=== PATIENT | male | born 1960 | race Caucasian/White ===

== ENCOUNTER 2016-12-19 06:04 | Day surgery (SDC) | payer OTHER ==
[~2016-12-19] VITALS: Ht 175.3 cm; Wt 120.2 kg
[~2016-12-19 06:04] MED LIST: AMLO1CAP PO; ASPI-557 PO; CALC-946 PO; CYCL-208 PO; EXEN2PEN SQ; EZET10TA PO; GABA-336 PO; HYDR-2164 PO; HYDR-4132 PO; MELO7.5T12 PO; MODA200T48 PO; MULT-1243 PO; NATE60TA8 PO; NEBI10TA PO; PIOG45TA16 PO; ROSU5TAB PO; TRAM50TA4 PO; [UNRECOGNIZED DRUG - CODE] PO
--- OUTSIDE RECORDS SUMMARY | 2016-12-19 06:08 | XMS REPORT | Continuity of Care Document ---
Author Author [facility] Organization [facility] Address Unknown Phone Unavailable Care Team Providers Care Campground Hand Name Role Phone JASBIR GOODEN MD Primary Care Physician [phone] Insurance Providers Payer Name Policy Number Subscriber Name Relationship [employer] [id number] Luis Boucher 19 Self Advance Directives Directive Response Recorded Date/Time Ordered Resuscitation Status Full Code 02/19/14 4:51pm Problems No known problems or medical conditions. Medications Medication Dose Route Sig Days/Qty Instructions Order Date Discontinued Date Status Cyclobenzaprine Hcl 10 Mg PO NEEDED 07/30/08 Active Metformin Hcl 1,000 Mg TWICE A DAY 07/30/08 Active Hydrochlorothiazide 25 Mg PO DAILY 07/30/08 Active Amlodipine Besylate/Benazepril 1 Tab PO DAILY 07/30/08 Active [Tramadol] 07/30/08 02/20/14 Discontinued [Tramadol Hcl] 50 Mg PO Q6-8HRS 02/19/14 Active [Zamicet] 10 Mg PO BEDTIME 02/19/14 Active [Welchol] 1,875 Mg PO TWICE A DAY 02/19/14 Active [Crestor] 5 Mg PO DAILY 02/19/14 Active [Conzip] 100 Mg PO TWICE A DAY 02/19/14 Active [Actos] 30 Mg PO DAILY 02/19/14 Active [Zetia] 10 Mg PO DAILY 02/19/14 Active [Vitamin D] 1 Tab PO DAILY 02/19/14 Active [Potassium Cl] 10 Meq PO DAILY 02/19/14 Active [Mobic] 7.5 Mg PO DAILY 02/19/14 Active Hydrocodone/Acetaminophen 1 Tab PO Q6H PRN 02/19/14 Active [Gabapentin] 100 Mg PO THREE TIMES A DAY 02/19/14 Active Folic Acid/Mv,Fe,Other Min 1 Tab PO DAILY 02/19/14 Active [Bystolic] 10 Mg PO DAILY 02/19/14 Active [Aspirin] 81 Mg PO DAILY 02/19/14 Active Social History Social History Problem Response Recorded Date/Time Smoking Status Current some day smoker 02/20/2014 8:55am Chewing Tobacco Status No 02/20/2014 8:55am Hx Alcohol Use Y several times a month 02/20/2014 8:55am Has the pt used tobacco in the last 12 months Yes 02/20/2014 8:55am Hospital Discharge Instructions No hospital discharge instructions. Plan of Care No plan of care. Functional Status No functional status results. Allergies, Adverse Reactions, Alerts Allergen Type Severity Reaction Status Last Updated No Known Drug Allergies Allergy Unknown Active 12/28/11 Immunizations Name Given Type Hx Influenza Vaccination Y Fall 2012 Historical Hx Pneumococcal Vaccination No Historical Hx Influenza Vaccination Y Fall 2012 Historical Vital Signs Acute Vital Signs Vital Response Date/Time Temperature (Fahrenheit) 98.1 deg F (96.8 - 99.1) Temperature (Calculated Celsius) 36.21476 degrees C (36.0 - 37.3) Temperature Source Temporal Pulse Rate (adult) 66 bpm (60 - 100) Respiratory Rate 16 breaths/min (10 - 20) O2 Sat by Pulse Oximetry 94 % (90 - 100) Blood Pressure 134/70 mm Hg Blood Pressure Source Automatic Cuff Height 5 ft 8.5 in Weight 246 lb Body Mass Index 36.0 kg/m^2 Results Test Source Date Result Interp. Ref. Range Comments Alanine Aminotransferase (ALT/SGPT) December 28, 2011 8:04pm 37 U/L N 21-72 Albumin December 28, 2011 8:04pm 4.4 G/DL N 3.5-5.0 Albumin/Globulin Ratio December 28, 2011 8:04pm 1.4 RATIO N 1.1-2.2 Alkaline Phosphatase December 28, 2011 8:04pm 90 U/L N 38-126 Anion Gap December 28, 2011 8:04pm 12 MEQ/L N 5-15 Aspartate Amino Transf (AST/SGOT) December 28, 2011 8:04pm 26 U/L N 17-59 BUN/Creatinine Ratio December 28, 2011 8:04pm 12 RATIO N 6-26 Basophils # (Auto) December 28, 2011 8:04pm 0.1 T/MM3 N 0-0.2 Basophils (%) (Auto) December 28, 2011 8:04pm 0.7 % N 0-2 Blood Urea Nitrogen December 28, 2011 8:04pm 11.0 MG/DL N 9-20 Calcium Level December 28, 2011 8:04pm 9.2 MG/DL N 8.4-10.2 Calculated Osmolality December 28, 2011 8:04pm 279 MOSM/KG N 261-280 Carbon Dioxide Level December 28, 2011 8:04pm 29 MEQ/L N 22-30 Chloride Level December 28, 2011 8:04pm 103 MEQ/L N 98-107 Conjugated Bilirubin December 28, 2011 8:04pm 0.00 MG/DL N 0.00-0.30 Creatinine December 28, 2011 8:04pm 0.9 MG/DL N 0.8-1.5 Eosinophils # (Auto) December 28, 2011 8:04pm 0.3 T/MM3 N 0-0.5 Eosinophils (%) (Auto) December 28, 2011 8:04pm 2.5 % N 0-4 Globulin December 28, 2011 8:04pm 3.1 G/DL N 2.4-3.6 Glomerular Filtration Rate Calc December 28, 2011 8:04pm 89 - Glucometer February 20, 2014 9:59am 156 mg/dL H 75-110 Glucose Level December 28, 2011 8:04pm 151 MG/DL H 75-110 Hematocrit December 28, 2011 8:04pm 40.3 % L 41-53 Hemoglobin December 28, 2011 8:04pm 14.1 GM/DL N 13.5-17.5 Immature Granulocyte # (Auto) December 28, 2011 8:04pm 0.02 T/MM3 N 0.00- 0.03 Immature Granulocyte % (Auto) December 28, 2011 8:04pm 0.2 % N 0.0-0.5 Lymphocytes # (Auto) December 28, 2011 8:04pm 2.7 T/MM3 N 1-4.8 Lymphocytes (%) (Auto) December 28, 2011 8:04pm 22.9 % L 23-45 Mean Corpuscular Hemoglobin December 28, 2011 8:04pm 28.9 UUG N 26-34 Mean Corpuscular Hemoglobin Concent December 28, 2011 8:04pm 35.0 GM/DL N 31- 37 Mean Corpuscular Volume December 28, 2011 8:04pm 82.6 UM3 N 80-100 Mean Platelet Volume December 28, 2011 8:04pm 9.9 UM3 N 9.4-12.4 Monocytes # (Auto) December 28, 2011 8:04pm 0.8 T/MM3 N 0-0.8 Monocytes (%) (Auto) December 28, 2011 8:04pm 7.0 % N 0-9.0 Neutrophils # (Auto) December 28, 2011 8:04pm 7.8 T/MM3 H 1.8-7.7 Neutrophils (%) (Auto) December 28, 2011 8:04pm 66.7 % H 33-66 Platelet Count December 28, 2011 8:04pm 263 T/MM3 N 130-400 Potassium Level December 28, 2011 8:04pm 3.5 MEQ/L L 3.6-5 RDW Standard Deviation December 28, 2011 8:04pm 38.8 FL N 36.9-50.2 Red Blood Count December 28, 2011 8:04pm 4.88 M/MM3 N 4.50-5.90 Sodium Level December 28, 2011 8:04pm 144 MEQ/L N 134-144 Total Bilirubin December 28, 2011 8:04pm 0.80 MG/DL N 0.20-1.30 Total Protein December 28, 2011 8:04pm 7.5 G/DL N 6.3-8.2 Unconjugated Bilirubin December 28, 2011 8:04pm 0.40 MG/DL N 0.00-1.10 Uric Acid December 28, 2011 8:04pm 6.0 MG/DL N 3.5-8.5 White Blood Count December 28, 2011 8:04pm 11.6 T/MM3 H 4.5-11.0 Procedures Procedure Status Date Provider(s) Colonoscopy with polypectomy and biopsy completed 02/20/[address] MD
--- OUTSIDE RECORDS SUMMARY | 2016-12-19 06:08 | XMS REPORT | Referral Summary ---
Author Author [facility] Organization [facility] Address Unknown Phone Unavailable Care Team Providers Care Cable Inspector Name Role Phone Cathryn Coyne Primary Care Physician [phone] [facility] [id number] Date(s): 06/09/16 - 06/09/16 [facility] [address] [place] [address] [facility] Discharge Diagnosis: Screening for thyroid disorder Discharge Diagnosis: Hyperlipemia Discharge Diagnosis: Diabetic peripheral neuropathy Discharge Diagnosis: Type 2 diabetes mellitus, uncontrolled Discharge Diagnosis: Hypertension Discharge Disposition: 01-Home or Self Care Attending Physician: Vesta Yeung APRN Admitting Physician: Vesta Yeung APRN Referring Physician: Sammie Coyne DO Vital Signs Most recent to 1 oldest [Reference Range]: Peripheral Pulse 76 bpm Rate [60-100 bpm] (06/09/16 11:00 AM) Blood Pressure 124/84 mmHg [90-140/60-90 mmHg] (06/09/16 11:00 AM) Problem List Condition Effective Dates Status Health Status Informant Diabetic peripheral Active neuropathy(Confirmed ) Hypertension(Confirm Active ed) Hyperlipemia(Confirm Active ed) Obesity(Confirmed) Active patient Screening for Active thyroid disorder(Confirmed) Type 2 diabetes Active mellitus, uncontrolled(Confirm ed) Allergies, Adverse Reactions, Alerts No Known Medication Allergies Medications Actos 45 mg oral tablet 45 mg 1 tabs, Oral, Daily, # 30 tabs, 0 Refill(s) Start Date: 06/09/16 Status: Ordered aspirin 0 Refill(s) Start Date: 06/09/16 Status: Ordered Bystolic 10 mg oral tablet 10 mg 1 tabs, Oral, Daily, # 30 tabs, 0 Refill(s) Start Date: 06/09/16 Status: Ordered Crestor 5 mg oral tablet 5 mg 1 tabs, Oral, Daily, # 30 tabs, 0 Refill(s) Start Date: 06/09/16 Status: Ordered cyclobenzaprine Oral, 0 Refill(s) Start Date: 06/09/16 Status: Ordered gabapentin Oral, 0 Refill(s) Start Date: 06/09/16 Status: Ordered Glucometer Lancets (DME) DME Item freestyle lancets checks qid x3 days per week 1 yxq=715, See Instructions, # 1 Each, 6 Refill(s), [facility]: [facility], freestyle lancets; checks qid x3 days per week; 1 rxr=336, Supply Start Date: 06/09/16 Status: Ordered Glucometer strips (DME) DME Item freestyle lite test strips checks qid x3 days per week 1 hvv=456, See Instructions, # 1 Each, 6 Refill(s), [facility]: [facility], freestyle lite test strips; checks qid x3 days per week; 1 ces=743, Supply Start Date: 06/09/16 Status: Ordered hydrochlorothiazide Oral, Daily, 0 Refill(s) Start Date: 06/09/16 Status: Ordered HYDROcodone-acetaminophen 10 mg-325 mg oral tablet tabs, Oral, q6hr, 0 Refill(s) Start Date: 06/09/16 Status: Ordered Januvia Oral, Daily, 0 Refill(s) Start Date: 06/09/16 Status: Ordered Lotrel 10 mg-20 mg oral capsule 1 caps, Oral, Daily, # 30 caps, 0 Refill(s) Start Date: 06/09/16 Status: Ordered modafinil Oral, qAM, 0 Refill(s) Start Date: 06/09/16 Status: Ordered multivitamin Daily, 0 Refill(s) Start Date: 06/09/16 Status: Ordered potassium citrate Oral, 0 Refill(s) Start Date: 06/09/16 Status: Ordered Vitamin D with Minerals oral tablet 1 tabs, Oral, Daily, # 30 tabs, 0 Refill(s) Start Date: 06/09/16 Status: Ordered Zetia 10 mg oral tablet 10 mg 1 tabs, Oral, Daily, # 30 tabs, 0 Refill(s) Start Date: 06/09/16 Status: Ordered Results Chemistry Most recent to 1 oldest [Reference Range]: Sodium Lvl [135-144 139 mEq/L mEq/L] (06/09/16:54 AM) Potassium Lvl 3.6 mEq/L [3.5-5.2 mEq/L] (06/09/16 11:54 AM) Chloride [99-111 103 mEq/L mEq/L] (06/09/16:54 AM) CO2 [23-31 mEq/L] 28 mEq/L (06/09/16:54 AM) AGAP [3-20] 8 (06/09/16:54 AM) BUN [8-26 mg/dL] 12 mg/dL (06/09/16:54 AM) Glucose Lvl [70-99 187 mg/dL mg/dL] *HI* (06/09/16:54 AM) Creatinine Lvl 0.79 mg/dL [0.72-1.25 mg/dL] (06/09/16:54 AM) eGFR [>60 mL/min] >60 mL/min 1 (06/09/16:54 AM) Calcium Lvl 8.9 mg/dL [8.9-10.5 mg/dL] (06/09/16:54 AM) ALT [0-55 U/L] 43 U/L (06/09/16:54 AM) AST [5-34 U/L] 25 U/L (06/09/16:54 AM) T4 Free [0.7-1.5 1.2 ng/dL ng/dL] (06/09/16:54 AM) TSH [0.35-4.94] 0.71 (06/09/16 11:54 AM) Hgb A1c [4.1-5.6 %] 9.8 % *HI* (06/09/16:54 AM) eAvg Glucose 234.6 mg/dL (06/09/16:54 AM) 1Result Comment: Multiply eGFR results by 1.21 for race. Urinalysis Most recent to 1 oldest [Reference Range]: UA Color Yellow (06/09/16 11:54 AM) UA Appear Clear (06/09/16 11:54 AM) UA pH [5.0-8.0] 6.5 (06/09/16 11:54 AM) UA Leuk Est Negative [Negative] (06/09/16 11:54 AM) UA Nitrite Negative [Negative] (06/09/16 11:54 AM) UA Protein Negative [Negative] (06/09/16 11:54 AM) UA Glucose Pos 3+ [Negative] *ABN* (06/09/16 11:54 AM) UA Ketones Negative [Negative] (06/09/16 11:54 AM) UA Urobilinogen 1.0 mg/dL [<1.0 mg/dL] (06/09/16 11:54 AM) UA Bili [Negative] Negative (06/09/16 11:54 AM) UA Blood [Negative] Negative (06/09/16 11:54 AM) UA Spec Grav 1.031 [1.003-1.030] *HI* (06/09/16 11:54 AM) Type Voided (06/09/16 11:54 AM) Immunizations No data available for this section Procedures Procedure Date Related Diagnosis Body Site Collection of venous blood by venipuncture 06/09/16 Social History Social History Type Response Smoking Status Never smoker Assessment and Plan Extracted from: Title: Office Visit Note Author: Vesta Yeung APRN Date: 06/09/16 Assessment/Plan 1.Type 2 diabetes mellitus, uncontrolled 1. check blood sugars fasting and 2 hours after meals 3-7 days per week. New [employer] test monitor provided 2. continue current doses of medications 3. discussed other treatment options available 4. monitor diet and exercise 5. avoid caffeine 6. monitor feet daily I discussed the patient with the preceptor. Ordered: Albumin/Creatinine Ratio, Urine Hemoglobin A1c Office Visit [place] 4 New [id number] Return to Clinic Urinalysis with Culture if Indicated 2.Hypertension Ordered: Albumin/Creatinine Ratio, Urine Hemoglobin A1c Office Visit Level 4 New [id number] Return to Clinic Urinalysis with Culture if Indicated 3.Hyperlipemia Ordered: Albumin/Creatinine Ratio, Urine Hemoglobin A1c Office Visit Level 4 New [id number] Return to Clinic Urinalysis with Culture if Indicated 4.Screening for thyroid disorder Ordered: Albumin/Creatinine Ratio, Urine Hemoglobin A1c Office Visit Level 4 New [id number] Return to Clinic Urinalysis with Culture if Indicated 5.Diabetic peripheral neuropathy Extracted from: Title: Ambulatory Patient Education Author: Vesta Yeung SPECIAL EFFECTS PERSON Date: 06/09/16 Preventive Medicine Blood Glucose Monitoring, Adult Monitoring your blood glucose (also know as blood sugar) helps you to manage your diabetes. It also helps you and your health care provider monitor your diabetes and determine how well your treatment plan is working. WHY SHOULD YOU MONITOR YOUR BLOOD GLUCOSE? It can help you understand how food, exercise, and medicine affect your blood glucose. It allows you to know what your blood glucose is at any given moment. You can quickly tell if you are having low blood glucose (hypoglycemia) or high blood glucose (hyperglycemia). It can help you and your health care provider know how to adjust your medicines. It can help you understand how to manage an illness or adjust medicine for exercise. WHEN SHOULD YOU TEST? Your health care provider will help you decide how often you should check your blood glucose. This may depend on the type of diabetes you have, your diabetes control, or the types of medicines you are taking. Be sure to write down all of your blood glucose readings so that this information can be reviewed with your health care provider. See below for examples of testing times that your health care provider may suggest. Type 1 Diabetes Test at least 2 times per day if your diabetes is well controlled, if you are using an insulin pump, or if you perform multiple daily injections. If your diabetes is not well controlled or if you are sick, you may need to test more often. It is a good idea to also test: Before every insulin injection. Before and after exercise. Between meals and 2 hours after a meal. Occasionally between 2:00 a.m. and 3:00 a.m. Type 2 Diabetes If you are taking insulin, test at least 2 times per day. However, it is best to test before every insulin injection. If you take medicines by mouth (orally), test 2 times a day. If you are on a controlled diet, test once a day. If your diabetes is not well controlled or if you are sick, you may need to monitor more often. HOW TO MONITOR YOUR BLOOD GLUCOSE Supplies Needed Blood glucose meter. Test strips for your meter. Each meter has its own strips. You must use the strips that go with your own meter. A pricking needle (lancet). A device that holds the lancet (lancing device). A journal or log book to write down your results. Procedure Wash your hands with soap and water. Alcohol is not preferred. Prick the side of your finger (not the tip) with the lancet. Gently milk the finger until a small drop of blood appears. Follow the instructions that come with your meter for inserting the test strip, applying blood to the strip, and using your blood glucose meter. Other Areas to Get Blood for Testing Some meters allow you to use other areas of your body (other than your finger) to test your blood. These areas are called alternative sites. The most common alternative sites are: The forearm. The thigh. The back area of the lower leg. The palm of the hand. The blood flow in these areas is slower. Therefore, the blood glucose values you get may be delayed, and the numbers are different from what you would get from your fingers. Do not use alternative sites if you think you are having hypoglycemia. Your reading will not be accurate. Always use a finger if you are having hypoglycemia. Also, if you cannot feel your lows (hypoglycemia unawareness), always use your fingers for your blood glucose checks. ADDITIONAL TIPS FOR GLUCOSE MONITORING Do not reuse lancets. Always carry your supplies with you. All blood glucose meters have a 24-hour "hotline" number to call if you have questions or need help. Adjust (calibrate) your blood glucose meter with a control solution after finishing a few boxes of strips. BLOOD GLUCOSE RECORD KEEPING It is a good idea to keep a daily record or log of your blood glucose readings. Most glucose meters, if not all, keep your glucose records stored in the meter. Some meters come with the ability to download your records to your home computer. Keeping a record of your blood glucose readings is especially helpful if you are wanting to look for patterns. Make notes to go along with the blood glucose readings because you might forget what happened at that exact time. Keeping good records helps you and your health care provider to work together to achieve good diabetes management. This information is not intended to replace advice given to you by your health care provider. Make sure you discuss any questions you have with your health care provider. Document Released: 07/19/2004 Document Revised: 08/07/2015 Document Reviewed: [employer] Interactive Patient Education 2016 [employer] No follow up information was provided. Referrals to Other Providers Referred by: Vesta Yeung APRN
--- OUTSIDE RECORDS SUMMARY | 2016-12-19 06:08 | XMS REPORT | Continuity of Care Document ---
Author Author [facility] Address Unknown Phone Unavailable Allergies Active Description Code Type Severity Reaction Onset Reported/Identified Relationship to Patient Clinical Status Yes No Known Drug Allergies No Known Drug Allergies Drug Allergy Unknown . 01/26/2015 Yes No Known Drug Allergies No Known Drug Allergies Drug Allergy Unknown . 01/26/2015 Medications Problems Procedures Code Description Performed By Performed On IMPLANT OR REPLACEMENT OF SPINAL NEUROSTIMULATOR Mike Gardner MD 01/19/2015 86.95 INSEJ/REPM MULT ARRAY NEUROSTIMUL PULSE GEN NOT SP Mike Zepeda MD 01/26/2015 Results Test Result Range GLUCOSE (POC) - 01/19/15 09:53 GLUCOSE (POC) 230 mg/dL 70-99 POTASSIUM - 01/19/15 10:05 POTASSIUM 3.7 mmol/L 3.5-5.3 GLUCOSE (POC) - 01/26/15 09:45 GLUCOSE (POC) 207 mg/dL 70-99 POTASSIUM - 01/26/15 09:47 POTASSIUM 4.0 mmol/L 3.5-5.3 GLUCOSE (POC) - 01/26/15 13:05 GLUCOSE (POC) 188 mg/dL 70-99 Encounters ACCT No. Visit Date/Time Discharge Status Pt. Type Provider Facility Loc./Unit Complaint [id number] 01/26/2015 08:51:00 2014 15:07:00 DIS Outpatient Duane HEARD, [facility] W.OPRA [id number] 01/19/2015 07:35:00 2014 14:15:00 DIS Outpatient Duane HEARD, [facility] W.OPRA [id number] 11/27/2013 20:00:00 2013 00:01:00 DIS Outpatient Jeremy HEARD, [facility] W.JEFFREY
--- OUTSIDE RECORDS SUMMARY | 2016-12-19 06:08 | XMS REPORT | Referral Summary ---
Author Author [facility] Organization [facility] Address Unknown Phone Unavailable Care Team Providers Care Senior Mechanical Development Engineer Name Role Phone Cathryn Coyne Primary Care Physician [phone] Encounter [facility] [phone] Date(s): 07/22/16 - 07/22/16 [facility] [address] [place] [address] [facility] Discharge Diagnosis: Diabetic peripheral neuropathy Discharge Diagnosis: Hypertension Discharge Diagnosis: Hyperlipemia Discharge Diagnosis: Type 2 diabetes mellitus, uncontrolled Discharge Disposition: 01-Home or Self Care Attending Physician: Vesta Yeung APRN Admitting Physician: Vesta Yeung APRN Vital Signs Most recent to 1 oldest [Reference Range]: Peripheral Pulse 84 bpm Rate [60-100 bpm] (07/22/16 9:24 AM) Blood Pressure 120/80 mmHg [90-140/60-90 mmHg] (07/22/16 9:24 AM) Problem List Condition Effective Dates Status [...] 0 Refill(s) Start Date: 06/09/16 Status: Ordered Bydureon Kit 2 mg subcutaneous injection, extended release 2 mg, SubCutaneous, qWeek, # 16 boxes, 6 Refill(s), [facility]acy: [facility], 2 mg SubCutaneous qWeek Start Date: 07/22/16 Status: Ordered Bystolic 10 mg oral tablet [...] checks qid x3 days per week 1 agl=999, See Instructions, # 1 Each, 6 Refill(s), [facility]acy: [facility] freestyle lancets; checks qid x3 days per week; 1 lub=625, Supply Start Date: 06/09/16 Status: Ordered Glucometer strips (DME) DME Item freestyle lite test strips checks qid x3 days per week 1 gwh=622, See Instructions, # 1 Each, 6 Refill(s), Pharmacy: [facility] freestyle lite test strips; checks qid x3 days per week; 1 dam=724, Supply Start Date: 06/09/16 Status: Ordered hydrochlorothiazide [...] 0 Refill(s) Start Date: 06/09/16 Status: Ordered Starlix 60 mg oral tablet 60 mg 1 tabs, Oral, TIDAC, # 270 tabs, 6 Refill(s), [facility]: [facility], 1 tabs Oral TIDAC Start Date: 07/22/16 Status: Ordered Vitamin D with Minerals oral tablet 1 tabs, Oral, Daily, # 30 tabs, 0 Refill(s) Start Date: 06/09/16 Status: Ordered Zetia 10 mg oral tablet 10 mg 1 tabs, Oral, Daily, # 30 tabs, 0 Refill(s) Start Date: 06/09/16 Status: Ordered Results No data available for this section Immunizations No data available for this section Procedures No data available for this section Social History Social History Type Response Smoking Status Never smoker Assessment and Plan Extracted from: Title: Office Visit Note Author: Vesta Yeung NUCLEAR MEDICAL TECHNOLOGIST Date: 07/22/16 Assessment/Plan 1.Type 2 diabetes mellitus, uncontrolled 1.check blood sugars fasting and 2 hours after meals 3-7 days per week 2.discussed options for better glucose control. Pt opted to try bydureon 2mg weekly 3.start starlix 60mg one tab 10-15 minutes prior to meals 4.stop januvia 5.continue actos 6.monitor diet closely 7.monitor feet daily I discussed the patient with the preceptor. Ordered: Office Visit Level 4 Est 87049 Return to Clinic 2.Diabetic peripheral neuropathy Ordered: Office Visit Level 4 Est 25850 Return to Clinic 3.Hyperlipemia Ordered: Office Visit Level 4 Est 17639 Return to Clinic 4.Hypertension Ordered: Office Visit Level 4 Est 31053 Return to Clinic Extracted from: Title: Ambulatory Patient Education Author: Vesta Yeung NUCLEAR MEDICAL TECHNOLOGIST Date: 07/22/16 Family Medicine Diabetes Mellitus and Food It is important for you to manage your blood sugar (glucose) level. Your blood glucose level can be greatly affected by what you eat. Eating healthier foods in the appropriate amounts throughout the day at about the same time each day will help you control your blood glucose level. It can also help slow or prevent worsening of your diabetes mellitus. Healthy eating may even help you improve the level of your blood pressure and reach or maintain a healthy weight. General recommendations for healthful eating and cooking habits include: Eating meals and snacks regularly. Avoid going long periods of time without eating to lose weight. Eating a diet that consists mainly of plant-based foods, such as fruits, vegetables, nuts, legumes, and whole grains. Using low-heat cooking methods, such as baking, instead of high-heat cooking methods, such as deep frying. Work with your dietitian to make sure you understand how to use the Nutrition Facts information on food labels. HOW CAN FOOD AFFECT ME? Carbohydrates Carbohydrates affect your blood glucose level more than any other type of food. Your dietitian will help you determine how many carbohydrates to eat at each meal and teach you how to count carbohydrates. Counting carbohydrates is important to keep your blood glucose at a healthy level, especially if you are using insulin or taking certain medicines for diabetes mellitus. Alcohol Alcohol can cause sudden decreases in blood glucose (hypoglycemia), especially if you use insulin or take certain medicines for diabetes mellitus. Hypoglycemia can be a life-threatening condition. Symptoms of hypoglycemia ( sleepiness, dizziness, and disorientation) are similar to symptoms of having too much alcohol. If your health care provider has given you approval to drink alcohol, do so in moderation and use the following guidelines: Women should not have more than one drink per day, and men should not have more than two drinks per day. One drink is equal to: 12 oz of beer. 5 oz of wine. 1 oz of hard liquor. Do not drink on an empty stomach. Keep yourself hydrated. Have water, diet soda, or unsweetened iced tea. Regular soda, juice, and other mixers might contain a lot of carbohydrates and should be counted. WHAT FOODS ARE NOT RECOMMENDED? As you make food choices, it is important to remember that all foods are not the same. Some foods have fewer nutrients per serving than other foods, even though they might have the same number of calories or carbohydrates. It is difficult to get your body what it needs when you eat foods with fewer nutrients. Examples of foods that you should avoid that are high in calories and carbohydrates but low in nutrients include: Trans fats (most processed foods list trans fats on the Nutrition Facts label). Regular soda. Juice. Candy. Sweets, such as cake, pie, doughnuts, and cookies. Fried foods. WHAT FOODS CAN I EAT? Eat nutrient-rich foods, which will nourish your body and keep you healthy. The food you should eat also will depend on several factors, including: The calories you need. The medicines you take. Your weight. Your blood glucose level. Your blood pressure level. Your cholesterol level. You should eat a variety of foods, including: Protein. Lean cuts of meat. Proteins low in saturated fats, such as fish, egg whites, and beans. Avoid processed meats. Fruits and vegetables. Fruits and vegetables that may help control blood glucose levels, such as apples, mangoes, and yams. Dairy products. Choose fat-free or low-fat dairy products, such as milk, yogurt, and cheese. Grains, bread, pasta, and rice. Choose whole grain products, such as multigrain bread, whole oats, and brown rice. These foods may help control blood pressure. Fats. Foods containing healthful fats, such as nuts, avocado, olive oil, canola oil, and fish. DOES EVERYONE WITH DIABETES MELLITUS HAVE THE SAME MEAL PLAN? Because every person with diabetes mellitus is different, there is not one meal plan that works for everyone. It is very important that you meet with a dietitian who will help you create a meal plan that is just right for you. This information is not intended to replace advice given to you by your health care provider. Make sure you discuss any questions you have with your health care provider. Document Released: 04/13/2006 Document Revised: 08/07/2015 Document Reviewed: [employer] Patient Education 2016 [employer] No follow up information was provided. Referrals to Other Providers Referred by: Vesta Yeung APRN
[2016-12-19 06:20] VITALS: Ht 175.3 cm; Wt 120.2 kg
[2016-12-19 06:21] VITALS: BP 161/91; PULSE 77; RESP 16; TEMP 98.3; O2SAT 98
[2016-12-19] MEDS ORDERED: ESOM40CA PO (06:29)
[2016-12-19] MEDS ORDERED: LIDOCAINE 1% (10mg/ml) 2ml SDV INJ ONE (07:00)
[2016-12-19] MEDS ORDERED: LR 1,000 ML IV SCH (07:00)
--- NOTE | 2016-12-19 07:11 | ANESPREOP ---
Anesthesia Record Date and Time DATE: 12/19/16 TIME: 07:09 Pre-Op Diagnosis gerd n&v Proposed Surgical Procedure EGD Allergies: Coded Allergies: No Known Drug Allergies (Verified Allergy, Unknown, 12/28/11) Ht/Wt/BMI Height: 5 ' 9.00 " Weight: 120.200 kg BMI: 39.1 kg/m2 Vital Signs Date Time Temp Pulse Resp B/P Pulse Ox O2 Delivery O2 Flow Rate FiO2 12/19/16 06:21 98.3 77 16 161/91 98 Room Air Medications Inpatient Medications Current Medications Medications (Trade) Dose Ordered Sig/Vinny Start Time Stop Time Status Last Admin Dose Admin Lactated Ringer's (Lactated Ringers) 1,000 ml @ 50 mls/hr Q20H 12/19/16 07:00 12/19/16 06:37 50 MLS/HR Amlodipine Besylate/Benazepril (Lotrel 10/20 Mg Capsule) 1 Cap Capsule, 1 TAB PO DAILY, (Reported) Last Taken: on 12/18/16 0800 Aspirin (Aspir 81) 81 Mg Tablet.dr, 81 MG PO DAILY, (Reported) Last Taken: on 12/18/16 08 Cholecalciferol (Vitamin D3) (Vitamin D3) 5, 000 Unit Tablet, 5,000 UNIT PO DAILY, (Reported) Last Taken: on 12/18/16 08 Cyclobenzaprine Hcl (Cyclobenzaprine Hcl) 10 Mg Tablet, 10 MG PO PRN, (Reported) Last Taken: on 12/18/161999 Esomeprazole Magnesium (Nexium) 40 Mg Capsule.dr, 1 CAP PO BID, (Reported) Last Taken: on 12/19/16 0545 Exenatide Microspheres (Bydureon Pen) 2 Mg/ 0.65 Ml Pen.injctr, 1 UNIT SQ WEEKLY, (Reported) Last Taken: on 12/12/16 Ezetimibe (Zetia) 10 Mg Tablet, 10 MG PO DAILY, ( Reported) Last Taken: on 12/18/16 08 Gabapentin (Gabapentin) 100 Mg Capsule, 300 MG PO BID, (Reported) Last Taken: on 12/18/161999 Hydrochlorothiazide (Hydrochlorothiazide) 25 Mg Tablet, 25 MG PO DAILY, (Reported) Last Taken: on 12/18/16 0800 Hydrocodone/Acetaminophen (Lorcet Hd 10-325 mg Tablet) 1 Each Tablet, 1 TAB PO Q6H PRN, (Reported) Last Taken: on 12/16/16 Hydrocodone/Acetaminophen (Zamicet 10-325 mg/15 ml Soln) 473 Ml Solution, 10 MG PO HS, (Reported) Last Taken: on 12/15/16 Meloxicam (Mobic) 7.5 Mg Tablet, 7.5 MG PO DAILY, ( Reported) Last Taken: on 12/18/16 2000 Modafinil (Modafinil) 200 Mg Tablet, 1 TAB PO DAILY, (Reported) Last Taken: on 12/18/16 0800 Multivits-Min/FA/Lycopene/Lut (Centrum Silver Tablet) 1 Each Tablet, 1 TAB PO DAILY, (Reported) Last Taken: on 12/18/16 0800 Nateglinide (Nateglinide) 60 Mg Tablet, 1 TAB PO TID, (Reported) Last Taken: on 12/18/16 0800 Nebivolol HCl (Bystolic) 10 Mg Tablet, 10 MG PO DAILY, (Reported) Last Taken: on 12/19/16 0545 Pioglitazone HCl (Pioglitazone HCl) 45 Mg Tablet, 1 TAB PO DAILY, (Reported) Last Taken: on 12/18/16 0800 Rosuvastatin Calcium (Crestor) 5 Mg Tablet, 5 MG PO DAILY, (Reported) Last Taken: on 12/18/16 2100 Tramadol HCl (Tramadol HCl) 50 Mg Tablet, 50 MG PO PRN, (Reported) Last Taken: on Unknown Date & Time Discontinued Medications Pioglitazone HCl (Actos) 30 Mg Tablet, 30 MG PO DAILY, (Reported) Currently on Beta Sasha: No Medical/Surgical History Anesthesia PMH: Reports: *Diabetes, *Hypertension, Arthritis (BACK), Obesity, Reflux, Sleep Apnea, Denies: *Angina, *Dyspnea, *MA, Anesthesia Reactions (NO AIRWAY ISSUES), Asthma, CHF, COPD, CVA/Stroke/TIA, Cancer, Clotting Problems, Deep Vein Thrombosis, Glaucoma, Hepatitis, Hiatal Hernia, Malignant Hyperthermia , Pneumonia, Renal Disease, Seizures, Thyroid Disease, Tuberculosis Smoking Status: Former smoker Has pt. smoked today?: No Use Chewing Tobacco?: No Second Hand Exposure: No Substance Use Type: does not use Substance last used: unknown Alcohol Intake: a few times a month Last Drink: unknown Past Surgical History Orthopedic Surgeries: Yes - RECONST RT RING FINGER; LT KNEE SCOPE Abdominal Surgeries: Yes - SHANT Genitourinary Surgeries: No Cardiac Surgeries: No Endocrine Surgeries: No Reproductive Surgeries: No Neurological Surgeries: Yes - MULTILEVEL DECOMPRESSION LAMINECTOMY Ear Surgeries: No Nose Surgeries: No Throat Surgeries: No Other Surgeries: Yes - EXC CYST ON TAILBONE,SPINAL STIMULATOR IMPLANTED Anesthesia Adverse Reactions: FOUND none Family Hx of Anesthesia Advers: none Hx of Motion Sickness: No Pertinent Findings EKG Rhythm: Sinus Rhythm Physical Exam Respiratory: Bilat breath sounds equal, Lungs clear Cardiovascular: FOUND Regular rate, rhythm, FOUND No murmur Airway Assessment Mallampati Score: II TMD: 2 Fingerbreadths Neck Extension: Poor Overall Assessment: No Airway Concerns, May Be Diff Mask Vent., May Be Diff Intubation ASA: 3 Plan Anesthesia Plan: TIVA Discussion Discussed risks/options/alternatives of anesthesia and questions answered. Patient consents. Nursing pain assessment noted. Present: Spouse Attestation Statement Prior to the delivery of any anesthetic medication, I examined the patient, developed the plan, obtained the patient's consent and discussed the risk and benefits of the procedure with the patient/guardian. JORGE CHAKRABORTY CRNA December 19, 2016 07:11
[2016-12-19] MEDS ORDERED: LIDOCAINE 1% (10mg/ml) 2ml SDV ONE (07:20)
[2016-12-19] MEDS ORDERED: PROPOFOL 500mg 50 ML IV ONE (07:20)
[2016-12-19] MEDS ORDERED: LIDOCAINE VISCOUS 2% Oral Soln 15ml UD ONE (07:23)
[2016-12-19 07:45] VITALS: BP 139/71; PULSE 73; RESP 14; TEMP 97.7; O2SAT 95
--- NOTE | 2016-12-19 07:57 | GSPOSTPROC ---
Immediate Operative Note DATE: 12/19/16 TIME: 07:56 Postop Diagnosis: * Retained food in stomach - possible diabetic gastroparesis * long-term use of meloxicam * Type 2 DM * N/V * GERD Surgical Procedure: EGD Surgeon: Georgina ASA: 3 TIRSO LIZARRAGA MD December 19, 2016 07:57
[2016-12-19 08:00] VITALS: BP 130/67; PULSE 67; RESP 16; O2SAT 95
--- NOTE | 2016-12-19 08:05 | NUR ---
CARE OF PT RECEIVED REPORT FROM Leyla WALKER RN TO ASSUME CARE OF PT. PT TOLERATING PO W/O DIFFICULTY. PT DENIES PAIN OR NAUSEA. WILL PROCEED WITH DISMISSAL.
[2016-12-19 08:15] VITALS: BP 145/80; PULSE 70; RESP 16; O2SAT 96
[2016-12-19 08:30] VITALS: BP 152/83; PULSE 74; RESP 16; TEMP 97; O2SAT 96
--- NOTE | 2016-12-19 08:47 | ANESPO ---
Post-Op Note Date 12/19/16 Time: 08:46 Status Pt Participated in Evaluation: Pt participated in person Vital Signs Date Time Temp Pulse Resp B/P Pulse Ox O2 Delivery O2 Flow Rate FiO2 12/19/16 08:30 97.0 74 16 152/83 96 Room Air Respiratory Function: Airway patent Cardiovascular Function: Regular pulse Telemetry Pattern: SR Mental Status: Alert/oriented Pain Level Intensity: 0 Hydration: Taking po fluids Complications during Recovery None apparent Follow-Up Instructions Instructions Per Surgeon GRACIE ENGLE CRNA December 19, 2016 08:47
--- NOTE | 2016-12-20 09:15 | OPNOTEF ---
DATE OF OPERATION 12/19/2016 SURGEON Uriel Erickson MD PREOPERATIVE DIAGNOSES 1. Nausea and vomiting. 2. Gastroesophageal reflux disease. 3. Type 2 diabetes mellitus. 3. Long-term use of meloxicam. POSTOPERATIVE DIAGNOSES 1. Retained food within the stomach - possible gastroparesis. 2. Type 2 diabetes mellitus. 3. Nausea and vomiting. 4. Gastroesophageal reflux disease. PROCEDURE Esophagogastroduodenoscopy. ANESTHESIA TIVA ASA CLASS 3 INDICATIONS The patient is a 56-year-old male who has had several months of increased belching, gas, flatus, indigestion, heartburn, and an acid taste in the back of his throat. He had had significant nausea and vomiting on several occasions. Because of his symptoms it was recommended that he have an EGD to investigate. He has used meloxicam on a long-term basis. FINDINGS The stomach, esophagus, and duodenum were normal except for a large amount of retained food within the stomach along the greater curvature. No inflammation was noted. DESCRIPTION OF PROCEDURE After informed consent was obtained, the patient was taken to the endoscopy suite and placed in left lateral decubitus position. IV anesthesia was administered by the anesthesia team. A bite block was inserted followed by an Olympus video gastroscope. The gastroscope was advanced down into the esophagus under direct vision. It was advanced to the second portion of the duodenum under direct vision. The scope was then slowly withdrawn examining the mucosa circumferentially. The stomach was normal other than the retained food within the stomach. A large amount of fluid was suctioned from the stomach but, with the food particles, the entire mucosa could not be visualized. All of the areas that were irrigated free of debris showed no evidence of irritation. The antrum was free of irritation. The scope was retroflexed to examine the cardiac and fundic portions of the stomach. The carbon dioxide insufflation was evacuated from the stomach and the scope was withdrawn into the esophagus. The Z-line was sharp. The esophagus was normal during scope withdrawal. The patient tolerated the procedure well. He was awakened and transferred to recovery area in stable condition. RECOMMENDATIONS 1. Check a gastric emptying study to see if the patient is suffering from gastroparesis. 2. Continue b.i.d. Nexium if he continues to have reflux symptoms. 3. He could stop his Carafate since there is no irritation. [facility]
== END 2016-12-19 08:47 | disposition home or self-care (01) ==
LOC: SCU 06:04
PROVIDERS: ATTEND Surgery
DX: K30 Functional dyspepsia (principal); R11.2 Nausea with vomiting, unspecified; K21.9 Gastro-esophageal reflux disease without esophagitis; Z79.1 Long term (current) use of non-steroidal anti-inflammatories (NSAID); E11.42 Type 2 diabetes mellitus with diabetic polyneuropathy; Z79.01 Long term (current) use of anticoagulants; I10 Essential (primary) hypertension; E78.00 Pure hypercholesterolemia, unspecified; G47.33 Obstructive sleep apnea (adult) (pediatric); I20.9 Angina pectoris, unspecified; G43.909 Migraine, unspecified, not intractable, without status migrainosus; Z79.82 Long term (current) use of aspirin; Z79.899 Other long term (current) drug therapy; Z99.89 Dependence on other enabling machines and devices; Z87.828 Personal history of other (healed) physical injury and trauma
CPT/HCPCS: 43235; 82948; J7120

== ENCOUNTER → 2016-12-23 | Outpatient (CLI) | payer OTHER ==
[~2016-12-23] MED LIST changes: +ESOM40CA PO
--- NOTE | 2016-12-23 09:36 | DI ---
Indication: ITS.REASON: TYPE II DIABETES PROCEDURE: NM GASTRIC EMPTYING STUDY: Encounter: Initial Comparison: None. Technique: The patient consumed a standard meal labeled with approximately 2.1 mCi of Tc-99m sulfur colloid. Anterior and posterior planar images were obtained and time/activity curves were calculated. Findings: Radiotracer does not progress normally from stomach into the small bowel. There is almost no tracer activity seen beyond the stomach over the 90 minutes of imaging. Calculated T-1/2 gastric emptying time is significantly prolonged at approximately 1808 minutes (normal range 45-110 minutes). Impression: Essentially no gastric emptying consistent with gastroparesis. .
== END ==
LOC: IMA 07:05
PROVIDERS: ATTEND Surgery
DX: R94.8 Abnormal results of function studies of other organs and systems (principal); E11.8 Type 2 diabetes mellitus with unspecified complications; R11.2 Nausea with vomiting, unspecified
CPT/HCPCS: 78264; A9541